=== PATIENT | female | born 1945 | race Caucasian/White ===

== ENCOUNTER 2016-07-08 17:24 | Inpatient (IN) | payer OTHER, MEDICAID ==
[~2016-07-08] VITALS: Ht 147.3 cm; Wt 83.1 kg
[~2016-07-08 17:24] MED LIST: ACCUCHECKS; ALENDRONATE SOD70 M2 PO; AMITRIPTYLINE H25 MG PO; ASPIR 8181 MG PO; BAYER ASPIRIN C81 MG PO; CARVEDILOL3.125 M1 PO; CELEXA40 MG PO; CIPRO500 MG PO; CITALOPRAM HYDR40 M1 PO; CLINDAMYCIN300 M1 PO; COL250 PO; COLACE100 MG PO; DITROPAN XL5 MG PO; ELA25 PO; KEFLEX500 M1 PO; KEFLEX500 MG PO; LAC PO; LOR PO; LOVASTATIN20 MG PO; MAGNESIUM OXID400 MG PO; METFORMIN ER500 M1 PO; METFORMIN HCL500 MG PO; NEU300 PO; NOR10T PO; NORCO1 TA2 PO; OMEPRAZOLE40 M1 PO; PRILOSEC40 MG PO; TRAMADOL HCL50 MG PO; VITAMIN D1000 I1 PO
[2016-07-08 23:07] LABS: BASOPHIL % 1.1 % (0-2); PLATELET COUNT 222 x10^3mcL (130-400); RED CELL DISTRIBUTION WIDTH 13.4 % (11.5-14.5)
[2016-07-08 23:15] LABS: CALCIUM 9.8 mg/dL (8.5-10.1); CARBON DIOXIDE 34.5 mmol/L (21-32); CHLORIDE SERUM 102 mmol/L (98-107); CREATININE SERUM 0.8 mg/dL (0.6-1.0); GLUCOSE SERUM 116 mg/dL (74-106); POTASSIUM SERUM 4.4 mmol/L (3.5-5.1); SODIUM SERUM 141 mmol/L (136-145)
[2016-07-08 23:19] LABS: ALKALINE PHOSPHATASE 51 U/L (46-116); ALT/SGPT 22 U/L (14-59); AST/SGOT 15 U/L (15-37); BILIRUBIN TOTAL 0.1 mg/dL (0.20-1.00); TOTAL PROTEIN, SERUM 6.7 g/dL (6.4-8.2)
[2016-07-08 23:22] LABS: ALBUMIN 3.3 g/dL (3.4-5.0)
[2016-07-08] MEDS ORDERED: TRAMADOL HCL50 MG PO (23:49)
[2016-07-09] VITALS (7 sets, daily range): BP systolic 103–169; BP diastolic 57–74
[2016-07-09 00:46] LABS: microscopic required? NO
[2016-07-09 00:58] LABS: urine erythrocyte NEGATIVE (NEGATIVE)
[2016-07-09 01:00] LABS: T3 TOTAL 1.24 ng/mL
[2016-07-09 01:07] LABS: FREE T4 1.42 ng/dL (0.76-1.46); FREE THYROXINE INDEX 2.9 ug/dL (1.4-4.5); T4(THYROXINE) 9.5 ug/dL (4.7-13.3)
[2016-07-09 05:50] LABS: BASOPHIL % 0.5 % (0-2); PLATELET COUNT 209 x10^3mcL (130-400); RED CELL DISTRIBUTION WIDTH 13.5 % (11.5-14.5)
[2016-07-09 06:16] LABS: CALCIUM 8.8 mg/dL (8.5-10.1); CARBON DIOXIDE 30.2 mmol/L (21-32); CHLORIDE SERUM 106 mmol/L (98-107); CREATININE SERUM 0.7 mg/dL (0.6-1.0); GLUCOSE SERUM 101 mg/dL (74-106); MAGNESIUM 1.7 mg/dL (1.8-2.4); PHOSPHOROUS 3.8 mg/dL (2.5-4.9); POTASSIUM SERUM 3.9 mmol/L (3.5-5.1); SODIUM SERUM 142 mmol/L (136-145)
[2016-07-10 06:13] LABS: BASOPHIL % 0.4 % (0-2); PLATELET COUNT 220 x10^3mcL (130-400); RED CELL DISTRIBUTION WIDTH 13.3 % (11.5-14.5)
[2016-07-10 06:19] LABS: CALCIUM 9.1 mg/dL (8.5-10.1); CARBON DIOXIDE 34.4 mmol/L (21-32); CHLORIDE SERUM 104 mmol/L (98-107); CREATININE SERUM 0.6 mg/dL (0.6-1.0); GLUCOSE SERUM 115 mg/dL (74-106); MAGNESIUM 1.8 mg/dL (1.8-2.4); PHOSPHOROUS 3.9 mg/dL (2.5-4.9); POTASSIUM SERUM 3.7 mmol/L (3.5-5.1); SODIUM SERUM 143 mmol/L (136-145)
[2016-07-10 09:20] VITALS: Ht 147.3 cm; Wt 83.1 kg
[2016-07-10 11:07] VITALS: BP 103/54
[2016-07-10 18:00] VITALS: BP 91/73
[2016-07-10 20:35] VITALS: BP 91/73
[2016-07-10 21:13] VITALS: BP 123/57
[2016-07-10] MEDS ORDERED: PRILOSEC OTC20 M1 PO (21:13)
[2016-07-10 21:40] VITALS: BP 123/57
== END 2016-07-10 23:10 | disposition short-term general hospital (02) | DRG 286 ==
LOC: ED 17:24 → DU 23:01
PROVIDERS: Emergency Medicine; Internal Medicine Cardiovascular Disease; ADMIT Family Medicine
PROC: B310YZZ Fluoroscopy of Thoracic Aorta using Other Contrast (ICD-10-PCS; 2016-07-10)
PROC: B211YZZ Fluoroscopy of Multiple Coronary Arteries using Other Contrast (ICD-10-PCS; 2016-07-10)
PROC: B215YZZ Fluoroscopy of Left Heart using Other Contrast (ICD-10-PCS; 2016-07-10)
PROC: 4A023N8 Measurement of Cardiac Sampling and Pressure, Bilateral, Percutaneous Approach (ICD-10-PCS; principal; 2016-07-10 14:30)
DX: I35.0 Nonrheumatic aortic (valve) stenosis (principal); I50.43 Acute on chronic combined systolic (congestive) and diastolic (congestive) heart failure; N17.0 Acute kidney failure with tubular necrosis; T81.83XA Persistent postprocedural fistula, initial encounter; E44.0 Moderate protein-calorie malnutrition; D68.69 Other thrombophilia; I42.2 Other hypertrophic cardiomyopathy; I11.0 Hypertensive heart disease with heart failure; E11.42 Type 2 diabetes mellitus with diabetic polyneuropathy; K21.9 Gastro-esophageal reflux disease without esophagitis; D64.9 Anemia, unspecified; E78.5 Hyperlipidemia, unspecified; M19.90 Unspecified osteoarthritis, unspecified site; R35.0 Frequency of micturition; E66.9 Obesity, unspecified; Z68.38 Body mass index [BMI] 38.0-38.9, adult; Z79.84 Long term (current) use of oral hypoglycemic drugs
CPT/HCPCS: CLHCL; 36600; 82962; 83880; 84439; C1751; C1760; C1769; C1894; J0690; J1644; J2001; J2250; J2270; J3010; J7030; J7040; Q0092; Q0163; Q9967

== ENCOUNTER 2016-12-16 19:19 | Observation (INO) | payer OTHER, MEDICAID ==
[~2016-12-16] VITALS: Ht 144.8 cm; Wt 83.7 kg
[~2016-12-16 19:19] MED LIST changes: +PRILOSEC OTC20 M1 PO
[2016-12-16 23:22] LABS: CALCIUM 8.9 mg/dL (8.5-10.1); CARBON DIOXIDE 34.3 mmol/L (21-32); CHLORIDE SERUM 105 mmol/L (98-107); CREATININE SERUM 0.7 mg/dL (0.6-1.0); GLUCOSE SERUM 95 mg/dL (74-106); POTASSIUM SERUM 3.9 mmol/L (3.5-5.1); SODIUM SERUM 144 mmol/L (136-145)
[2016-12-16 23:25] LABS: BASOPHIL % 1.3 % (0-2); PLATELET COUNT 210 x10^3mcL (130-400); RED CELL DISTRIBUTION WIDTH 16.1 % (11.5-14.5)
[2016-12-16 23:31] LABS: ALBUMIN 3.7 g/dL (3.4-5.0); ALKALINE PHOSPHATASE 55 U/L (46-116); ALT/SGPT 19 U/L (14-59); AMYLASE 38 U/L (25-115); AST/SGOT 20 U/L (15-37); BILIRUBIN TOTAL 0.26 mg/dL (0.20-1.00); LIPASE 143 IU/L (73-393); TOTAL PROTEIN, SERUM 7.2 g/dL (6.4-8.2)
[2016-12-17 00:58] LABS: CHOLESTEROL/HDL RATIO 3.2; MAGNESIUM 1.7 mg/dL (1.8-2.4)
[2016-12-17 01:05] VITALS: BP 138/55
[2016-12-17 01:06] LABS: T3 TOTAL 1.29 ng/mL
[2016-12-17 01:30] LABS: FREE T4 1.02 ng/dL (0.76-1.46); FREE THYROXINE INDEX 2.7 ug/dL (1.4-4.5); T4(THYROXINE) 7.6 ug/dL (4.7-13.3)
[2016-12-17 06:08] VITALS: BP 141/62
[2016-12-17 06:30] LABS: BASOPHIL % 0.5 % (0-2); PLATELET COUNT 192 x10^3mcL (130-400)
[2016-12-17 06:34] LABS: CALCIUM 8.7 mg/dL (8.5-10.1); CARBON DIOXIDE 31.8 mmol/L (21-32); CHLORIDE SERUM 106 mmol/L (98-107); CREATININE SERUM 0.7 mg/dL (0.6-1.0); GLUCOSE SERUM 98 mg/dL (74-106); MAGNESIUM 2.3 mg/dL (1.8-2.4); POTASSIUM SERUM 4.2 mmol/L (3.5-5.1); SODIUM SERUM 142 mmol/L (136-145)
[2016-12-17] MEDS ORDERED: LOVASTATIN40 MG PO (07:08)
[2016-12-17] MEDS ORDERED: VITAMIN B121000 MCG PO (07:09)
[2016-12-17] MEDS ORDERED: VITAMIN C PUR1000 M1 PO (07:09)
[2016-12-17] MEDS ORDERED: VITAMIN D32000 I2 PO (07:09)
[2016-12-17 07:44] LABS: UA SPECIFIC GRAVITY 1.025 (1.005-1.035); microscopic required? YES; urine erythrocyte NEGATIVE (NEGATIVE)
[2016-12-17 07:57] LABS: RED CELL DISTRIBUTION WIDTH 15.8 % (11.5-14.5)
[2016-12-17 08:42] VITALS: Ht 144.8 cm; Wt 83.7 kg
[2016-12-17 09:07] VITALS: BP 143/67
[2016-12-17 15:39] VITALS: BP 140/69
[2016-12-17 15:42] VITALS: BP 136/76
[2016-12-17 16:43] VITALS: BP 136/76
[2016-12-17] MEDS ORDERED: BD LACTINEX1.4 MG PO (16:51)
[2016-12-17] MEDS ORDERED: LEVAQUIN750 MG PO (16:51)
== END 2016-12-17 17:03 | disposition home or self-care (01) | DRG 919 ==
LOC: ED 19:19 → DU 22:35 → MU 22:35 → DU 23:27 → MU 12-17 12:59
PROVIDERS: Emergency Medicine; ADMIT Family Medicine
DX: T81.31XA Disruption of external operation (surgical) wound, not elsewhere classified, initial encounter (principal); N17.0 Acute kidney failure with tubular necrosis; N39.0 Urinary tract infection, site not specified; D68.69 Other thrombophilia; E11.65 Type 2 diabetes mellitus with hyperglycemia; E11.59 Type 2 diabetes mellitus with other circulatory complications; I10 Essential (primary) hypertension; E78.2 Mixed hyperlipidemia; E83.42 Hypomagnesemia; K21.9 Gastro-esophageal reflux disease without esophagitis; M19.90 Unspecified osteoarthritis, unspecified site; E66.9 Obesity, unspecified; Z68.39 Body mass index [BMI] 39.0-39.9, adult; Y83.4 Other reconstructive surgery as the cause of abnormal reaction of the patient, or of later complication, without mention of misadventure at the time of the procedure; Y92.009 Unspecified place in unspecified non-institutional (private) residence as the place of occurrence of the external cause
CPT/HCPCS: 83880; 84439; G0378; J1815; J1956; J3475; J7030; Q0092

== ENCOUNTER 2020-01-15 16:05 | Emergency (ER) | payer OTHER, MEDICAID ==
[~2020-01-15] VITALS: Ht 157.5 cm; Wt 104.3 kg
[~2020-01-15 16:05] MED LIST changes: +BD LACTINEX1.4 MG PO; +LEVAQUIN750 MG PO; +LOVASTATIN40 MG PO; +VITAMIN B121000 MCG PO; +VITAMIN C PUR1000 M1 PO; +VITAMIN D32000 I2 PO
[2020-01-15 16:12] VITALS: Ht 157.5 cm; Wt 104.3 kg
[2020-01-15 19:00] VITALS: BP 154/120
== END 2020-01-15 19:00 | disposition home or self-care (01) ==
LOC: ED 16:05
DX: M25.552 Pain in left hip (principal); M25.562 Pain in left knee; M79.661 Pain in right lower leg; I10 Essential (primary) hypertension; E11.9 Type 2 diabetes mellitus without complications; Z98.890 Other specified postprocedural states; W18.30XA Fall on same level, unspecified, initial encounter; Y93.89 Activity, other specified; Y92.89 Other specified places as the place of occurrence of the external cause; Y99.8 Other external cause status
CPT/HCPCS: Q0092